=== PATIENT | female | born 1950 | race Caucasian/White ===

== ENCOUNTER 2023-10-20 17:13 | Emergency (ER) | payer MEDICARE, SELFPAY ==
[2023-10-20 17:13] VITALS: BMI 40.7
[2023-10-20 17:16] VITALS: BP 150/88
[2023-10-20 17:30] VITALS: BP 124/91
[2023-10-20 17:33] LABS: % Basophils 0.6 % (0-2); % Eosinophils 0.3 % (0-6); % Immature Granulocytes 0.3 % (0-0.5); % Lymphocytes 16.9 % (20.5-51.1); % Monocytes 6.1 % (1.7-9.3); % Neutrophils 75.8 % (42.2-75.2); Absolute Basophils 0.1 10^3/uL (0-0.2); Absolute Lymphocytes 1.3 10^3/uL (1.2-3.4); Absolute Monocytes 0.5 10^3/uL (0.1-0.6); Hematocrit 41.1 % (37.0-47.0); Hemoglobin 14.4 g/dL (12.0-16.0); Mean Corpuscular Hgb 30.7 pg (27.0-31.0); Mean Corpuscular Volume 87.6 fL (81.0-99.0); Mean Platelet Volume 9.1 fL (7.4-10.4); Nucleated Red Blood Cells % 0 %; Platelet Count 246 10^3/uL (130-400); Red Blood Cell Count 4.69 10^6/uL (4.20-5.40); Red Cell Dist. Width 12.9 % (11.5-14.5); White Blood Cell Count 7.9 10^3/uL (4.8-10.8)
[2023-10-20 17:56] LABS: COVID-19 Antigen Negative (Negative)
[2023-10-20 17:57] LABS: Urine Albumin Negative (Neg - Trace); Urine Bilirubin Negative (Negative); Urine Character Clear (Clear); Urine Color Yellow; Urine Glucose Negative (Negative); Urine Ketone Negative (Negative); Urine Leukocyte Negative (Negative); Urine Nitrite Negative (Negative); Urine Occult Blood Negative (Negative); Urine Urobilinogen Negative (Neg - 1+)
--- NOTE | 2023-10-20 18:05 | ED.GENMED ---
History of Present Illness
General
Chief Complaint: Dizziness
Source: patient and ambulance crew
Exam Limitations: none
Time Seen by Provider: 10/20/23 17:48
Nursing documentation reviewed up to this point in time: agreed with
History of Present Illness
History of Present Illness:
73-year-old female with a past medical history of hypertension, hyperlipidemia, diabetes, anxiety and depression who presents to the emergency room from home via EMS for evaluation of dizziness and fogginess. Patient reports that she has a long
history of anxiety and depression; she says that she initially was following with Dr. Wong through [facility] but will transition to treatment in [place] and has been receiving CBT there, nurse practitioner apparently recently started her
on multiple psychiatric medications. Patient had been on Klonopin since May this was prescribed by Dr. Wong; she has been continued on Klonopin but apparently her psychiatrist started her on 3 medications 2 weeks ago�Latuda, gabapentin, BuSpar.
She says since starting these medication she has been dizzy and foggy, off balance. She says that her psychiatrist is not able to see her until later this weekend she was not feeling well and decided she should come to the ER to be assessed. She
denies any chest pain, palpitations, shortness of breath. No headache. Denies any change in vision or speech, focal weakness or numbness in her extremities. She denies any fevers or chills or recent illness. She denies any other complaints.
Review of Systems
Review of Systems
All Other Systems: ROS reviewed and negative except as documented in HPI and ROS
Constitutional: Reports fatigue; Denies fever or chills
EENT: Denies sore throat
Respiratory: Denies cough or trouble breathing
Cardiac: Denies chest pain or palpitations
ABD/GI: Denies abdominal pain, nausea or vomiting
: Denies flank pain
Musculoskeletal: Denies neck pain or back pain
Neurological: Reports dizzy; Denies headache, weakness or numbness
Phy Exam
Physical Exam
Physical Exam:
General: Awake, alert, oriented x3; no acute distress
Head: Normocephalic, atraumatic
Eyes: Conjunctiva normal, EOMI, pupils equal round and reactive to light bilaterally
Throat: Airway intact, handling secretions
Neck: Trachea midline, supple without meningismus
Lungs: Clear to auscultation bilaterally, no wheezing, rales, rhonchi
Heart: Regular rate and rhythm, no murmurs, gallops, or rubs
Abd: Soft, non distended, nontender
Neuro: Cranial nerves intact 2 through 12, speech fluid without dysarthria or aphasia, no limb ataxia or dysdiadochokinesia, motor and sensory function intact and symmetric proximally distally upper and lower extremities
Skin: no rash
Extremities: No edema in extremities, equal pulses in all extremities
Scores
Heart Failure Risk
Heart Failure Risk Score: Not Applicable
Heart Score for Chest Pain Patients
STEMI patient?: Not applicable
Withdrawal Assessment of Alcohol
Withdrawal Assessment Completed?: Not applicable
Course
Orders/Labs/Results
Orders:
Orders
10/20/23 17:20
Electrocardiogram (*1) Urgent
Reason for Study: Vertigo / Dizzy
Comprehensive Metabolic Panel Urgent
10/20/23 17:21
EKG- Treatment ONCE
10/20/23 17:24
COVID-19 Antigen Urgent
Source: Nasal Swab
Complete Blood Count/With Diff Urgent
10/20/23 17:48
Urinalysis Reflex To Culture Urgent
Date Specimen was Collected: 10/20/23
Time Specimen was Collected: 17:47
10/20/23 18:03
Lorazepam [Ativan] 0.5 mg PO NOW STA
10/20/23 19:48
Crisis Consult Routine
Reason for Consult: anxiety
10/20/23 20:21
Lorazepam [Ativan] 0.5 mg IV NOW STA
Abnormal Lab Results
10/20/23 10/20/23
17:20 17:24
Neutrophils % 75.8 H %
(42.2-75.2)
Lymphocytes % 16.9 L %
(20.5-51.1)
Carbon Dioxide 21 L mmol/L
(22-30)
Glucose 162 H mg/dl
(70-99)
10/20/23 17:24
10/20/23 17:20
Vital Signs
Initial and Last Documented VS:
Initial Vital Signs
Pulse Resp Pulse Ox
82 19 96
10/20/23 17:15 10/20/23 17:15 10/20/23 17:15
Last Documented Vital Signs
Temp Pulse Resp BP Pulse Ox
36.5 C 85 21 124/91 97
10/20/23 17:36 10/20/23 20:15 10/20/23 20:15 10/20/23 17:30 10/20/23 19:00
MDM/Problems Addressed
Differential Diagnosis Includes:
Polypharmacy, anemia, electrolyte derangement, dehydration; very low clinical suspicion for stroke based on history and exam and in my judgment no head imaging indicated at this point in time
MDM/Problems Addressed:
73-year-old female presents to the ER for evaluation of dizziness/fogginess in the setting of recent initiation of multiple psychiatric medications 2 weeks ago. Hypertensive but otherwise normal vitals. Physical exam as above�notably normal
neurologic exam. Will plan to place an IV check labs including CBC and CMP. Check an EKG. Check COVID swab, urinalysis. Will check orthostatic vital signs. Provide some IV fluids. Patient very anxious, will treat with some low-dose Ativan.
Reassess after the above.
Labs reviewed: CBC unremarkable no anemia, CMP no clinically significant abnormalities. Urinalysis negative, COVID-negative, EKG shows sinus rhythm with no AV block, no Brugada, no delta wave, normal QTc. Suspect likely fogginess/dizziness is
medication related. Discussed with psychiatry, not unreasonable to stop Latuda for now and patient can follow-up outpatient however when I spoke to the patient she says she is becoming increasingly anxious, is very scared to go home feels she may
benefit from inpatient psychiatric treatment due to her severe anxiety; she is very dissatisfied with her outpatient treatment. Case discussed with crisis to evaluate patient.
Crisis performed an assessment, patient does not qualify for inpatient psychiatric treatment; I send reviewed with this, she readily admits that she is not suicidal or homicidal, not hallucinating and in my judgment is not a danger to herself or
others. She seems to be suffering with severe anxiety, provided some Ativan here with improvement. She will stop Latuda which I think is likely contributing to her dizziness and call Dr. Wong on Sunday to schedule close outpatient follow-up.
She is comfortable this plan. Spoke about return precautions all questions answered.
Chronic conditions affecting care:
Anxiety/depression
Acute Exacerbation and/or Progression of Chronic Illness:
Acutely hypertensive resolved without invention continue to monitor but no additional antihypertensives indicated present
Acute Exacerbation and/or Progression of Chronic Illness: HTN
*Pulse Oximetry
Patient hypoxic: no
*EKG
Interpreted by ED Provider?: Yes
Heart Rate: 78
Rate: normal
Rhythm: sinus
[place]: normal axis
Interval: normal interval
QRS Pattern: normal QRS
Ischemia: no ischemia
*Critical Care Note
Total Time (30-74mins, 75-104mins- exclusive of procedures): Not Applicable
Data Reviewed
Source: patient and ambulance crew
Patient Management
Discussion with other providers: [facility] Therapists (Discussed with psychiatry) and Other (Discussed with crisis staff)
ED Attending Note
-
Portions of this chart may have been created with voice recognition software.� Occasional wrong word or��sound alike� substitutions may have occurred due to the inherent limitations of voice recognition software.
Discharge Plan
Departure
Patient Disposition: Home (Routine Discharge)
Date of Disposition: 10/20/23
Time of Disposition: 20:57
Patient with high blood pressure during this ER visit?: Yes
Discharge Problem:
Dizziness
Instructions: Dizziness
Referrals:
Johnny Wong MD [Active] - Call in 1-3 days for appt
MAHSA MICHAEL MD [Family Provider] - Follow up in 5-7 days
Activity Restrictions/Additional Instructions:
Thank you for visiting the Emergency Department at [facility].
1. Please schedule a follow up appointment as directed. Call first thing tomorrow morning to make an appointment.
2. If indicated, please take your medications as instructed and indicated on discharge paperwork.
3. If any of your symptoms do not improve, or persist, or become more severe within 6-12 hours, please return to the emergency department for further care.
4. Please return to the emergency department if you develop a headache, neck pain/stiffness, fever greater than 100.4F, chest pain, shortness of breath, persistent nausea, vomiting, slurred speech, difficulty walking, numbness/tingling, weakness,
signs of infection or any other symptoms that are worrisome to you.
Please call [phone] if you have any questions.
Interventions
Interventions:
*Risk Screen - Suicide Last Done: 10/20/23 17:22
*General Assessment Last Done: 10/20/23 17:22
*Neglect/Abuse Screening Last Done: 10/20/23 17:22
*ED COVID-19 Vaccine History Last Done: 10/20/23 17:22
ED- Neurological Assessment Last Done: 10/20/23 17:29
ED- Cardiac Assessment Last Done: 10/20/23 17:29
ED Swallowing Screen Last Done: 10/20/23 17:29
Discharge Date and Time
Print Language: BURMESE
[2023-10-20] MEDS: ATIVAN 0.5 MG PO (18:10)
[2023-10-20 18:21] LABS: ALT (SGPT) 23 U/L (0-35); AST (SGOT) 27 U/L (14-36); Albumin 4.7 g/dl (3.5-5.0); Alkaline Phosphatase 96 U/L (38-126); Blood Urea Nitrogen 13 mg/dl (7-17); Calcium 10.2 mg/dl (8.4-10.2); Carbon Dioxide 21 mmol/L (22-30); Chloride 101 mmol/L (98-107); Estimated Creatinine Clearance 64 ml/min; Glucose 162 mg/dl (70-99); Potassium 4.6 mmol/L (3.5-5.1); Sodium 139 mmol/L (135-145); Total Bilirubin 0.8 mg/dl (0.2-1.3); Total Protein 6.9 g/dl (6.3-8.2); eGFR > 60.00
[2023-10-20] MEDS: ATIVAN 0.5 MG IV (20:26)
== END 2023-10-20 21:23 | disposition home or self-care (01) ==
LOC: EMR 17:13
PROVIDERS: EMERGENCY PHYSICIAN Emergency Medicine; FAMILY PHYSICIAN Internal Medicine
DX: R42 Dizziness and giddiness (principal); I10 Essential (primary) hypertension; E78.00 Pure hypercholesterolemia, unspecified; E11.9 Type 2 diabetes mellitus without complications; F41.9 Anxiety disorder, unspecified; Z11.52 Encounter for screening for COVID-19
CPT/HCPCS: 99283; 96374; 80053; 81003; 85025; 87811; 93005

== ENCOUNTER 2023-10-27 17:43 | Emergency (ER) | payer MEDICARE, SELFPAY ==
[2023-10-27 17:46] VITALS: BP 146/89
[2023-10-27 18:01] VITALS: BMI 40.0
[2023-10-27 18:08] VITALS: BP 109/83
[2023-10-27 18:18] LABS: % Basophils 0.5 % (0-2); % Eosinophils 0.4 % (0-6); % Immature Granulocytes 0.4 % (0-0.5); % Lymphocytes 15.8 % (20.5-51.1); % Monocytes 6.7 % (1.7-9.3); % Neutrophils 76.2 % (42.2-75.2); Absolute Lymphocytes 1.3 10^3/uL (1.2-3.4); Absolute Monocytes 0.5 10^3/uL (0.1-0.6); Absolute Neutrophils 6.2 10^3/uL (1.4-6.5); Hematocrit 39.9 % (37.0-47.0); Hemoglobin 14.2 g/dL (12.0-16.0); Mean Corp Hgb Conc. 35.6 g/dL (33.0-37.0); Mean Corpuscular Hgb 30.9 pg (27.0-31.0); Mean Corpuscular Volume 86.9 fL (81.0-99.0); Mean Platelet Volume 9.3 fL (7.4-10.4); Nucleated Red Blood Cells % 0 %; Platelet Count 251 10^3/uL (130-400); Red Blood Cell Count 4.59 10^6/uL (4.20-5.40); White Blood Cell Count 8.1 10^3/uL (4.8-10.8)
--- NOTE | 2023-10-27 18:24 | ED.GENMED ---
History of Present Illness
General
Chief Complaint: Dizziness
Source: patient and spouse
Time Seen by Provider: 10/27/23 18:04
History of Present Illness
History of Present Illness:
73-year-old female presents emergency department with increasing anxiety, feeling like she cannot stop shaking, insomnia, and just not really feeling her usual self. She was here last week for the same. She is on several medications for anxiety
and states that there are been recent changes in overall she thinks she is having a reaction to them. She states 'I think I need to be detox'. When I asked her for clarification about this, she states that she needs a reassessment and all her
medications either changed in dose or medication. She denies chest pain, shortness of breath, abdominal pain, fever, chills, nausea, vomiting, or other complaints. She specifically denies SI or HI. She denies any ingestions beyond her usual
medications at the usual dose.
Past History
Past History
ED Past Medical History: Psychiatric
Social History
Tobacco: Non-smoker
Alcohol: None
Drug: None
Personal:
Living: with family
Phy Exam
Physical Exam
Physical Exam:
GENERAL: Alert , in no apparent distress
EYE: pupils equal and reactive
NECK: Supple, no significant adenopathy.
ENT: o/p clr, mmm.
CARDIAC: Regular rate and rhythm .
LUNGS: Clear breath sounds bilaterally, no acute respiratory distress, no wheezes/rales/rhonchi
ABDOMEN: Soft, without focal tenderness, no r/g, no cvat
NEUROLOGICAL: Alert and oriented, no focal neuro deficits
SKIN: Warm and dry, skin intact.
MUSCULOSKELETAL: No edema, well perfused.
PSYCH: No SI or HI, extremely anxious
Course
Orders/Labs/Results
Orders:
Orders
10/27/23 18:04
Basic Metabolic Panel Urgent
Complete Blood Count/With Diff Urgent
10/27/23 18:23
Lorazepam [Ativan] 0.5 mg IV NOW STA
Abnormal Lab Results
10/27/23
18:04
Neutrophils % 76.2 H %
(42.2-75.2)
Lymphocytes % 15.8 L %
(20.5-51.1)
Glucose 178 H mg/dl
(70-99)
10/27/23 18:04
10/27/23 18:04
Vital Signs
Initial and Last Documented VS:
Initial Vital Signs
Temp Pulse Resp BP Pulse Ox
98.8 F 83 16 146/89 98
10/27/23 17:46 10/27/23 17:46 10/27/23 17:46 10/27/23 17:46 10/27/23 17:46
Last Documented Vital Signs
Temp Pulse Resp BP Pulse Ox
98.8 F 83 18 109/83 97
10/27/23 17:46 10/27/23 18:15 10/27/23 18:15 10/27/23 18:08 10/27/23 18:15
*Critical Care Note
Total Time (30-74mins, 75-104mins- exclusive of procedures): Not Applicable
Update Note
Update Note:
Patient presents to the Emergency Department with dizziness and shakiness
Number and Complexity of Problems Addressed at the Encounter
� Chronic conditions affecting care:
� Acute Exacerbation and/or Progression of Chronic Illness:
� Differential Diagnosis includes: But not limited to medication reaction, increasing anxiety, etc. etc.
Amount and/or Complexity of Data to be Reviewed and Analyzed
� I performed an independent evaluation of and my interpretation is:
EKG:
CT:
Xrays:
Laboratory Studies: Generally nonspecific, mild hyperglycemia
Other:
� Review of other/old records reveals:
� Clinical information was obtained by an independent historian: who is bedside
� Prescriptions/Medications Considered but not given:
� Further testing considered but not performed:
Risk of Complications and/or Morbidity or Mortality of Patient Management
� Social determinants of health affecting care:
� Discussion with other providers (PCP, Hospitalists, Consultants, etc): Call placed to crisis and asked them to see the patient in consult in the ER.
Patient seen by crisis in the emergency department, they agree that patient does not pose a threat to herself or others at this time and recommend that patient be seen by her psychiatrist this week. No medical abnormalities noted at this time to
warrant further evaluation. Discussed with patient and importance of follow-up and reasons to return to the ER.
Pt advised that if she develops si or hi, to rted vero. also in agreement with plan.
� Escalation of care including admission/observation vs risk of discharge considered:
ED Attending Note
-
Portions of this chart may have been created with voice recognition software.� Occasional wrong word or��sound alike� substitutions may have occurred due to the inherent limitations of voice recognition software.
Discharge Plan
Departure
Patient Disposition: Home (Routine Discharge)
Date of Disposition: 10/27/23
Time of Disposition: 19:53
Patient with high blood pressure during this ER visit?: Yes
Condition: Good
Discharge Problem:
Anxiety
Instructions: Anxiety, Adult ED, BLOOD PRESSURE
Referrals:
Chidi Willingham MD [Family Provider] -
Activity Restrictions/Additional Instructions:
PLEASE CALL YOUR PSYCHIATRIST FOR FOLLOW UP ON SUNDAY. TAKE YOUR MEDICATIONS PRESCRIBED.
Interventions
Interventions:
*Risk Screen - Suicide Last Done: 10/27/23 17:46
*General Assessment Last Done: 10/27/23 17:46
*Neglect/Abuse Screening Last Done: 10/27/23 17:46
ED- Fall Risk Assessment Last Done: 10/27/23 18:02
*ED COVID-19 Vaccine History Last Done: 10/27/23 18:02
ED- Neurological Assessment Last Done: 10/27/23 18:02
ED- Cardiac Assessment Last Done: 10/27/23 18:02
Discharge Date and Time
Print Language: KYRGYZ
[2023-10-27] MEDS: ATIVAN 0.5 MG IV (18:35)
[2023-10-27 18:38] LABS: Blood Urea Nitrogen 14 mg/dl (7-17); Calcium 9.8 mg/dl (8.4-10.2); Carbon Dioxide 23 mmol/L (22-30); Chloride 102 mmol/L (98-107); Estimated Creatinine Clearance 63 ml/min; Glucose 178 mg/dl (70-99); Sodium 140 mmol/L (135-145); eGFR > 60.00
[2023-10-27 19:00] VITALS: BP 107/63
--- NOTE | 2023-10-27 19:00 | EDRN ---
Report received, patient given a drink of water and something to eat, at bedside
--- NOTE | 2023-10-27 20:21 | EDRN ---
Patient ambulatory to the bathroom, patient states she doesn't feel well, asked what's wrong she just says shes scared and having mental health issues, crisis did see patient and give resources, informed Dr. Brooke who went in and spoke with patient
and plan is for patient to be discharged home, when discharging patient, patient brings this up again, did tell patient if she wants to speak with crisis again she can see them prior to leaving since she has been medically cleared by Dr. Brooke.
Patient wheeled out in a wheelchair by PCT.
== END 2023-10-27 20:24 | disposition home or self-care (01) ==
LOC: EMR 17:43
PROVIDERS: EMERGENCY PHYSICIAN Emergency Medicine; FAMILY PHYSICIAN Internal Medicine Gastroenterology
DX: F41.9 Anxiety disorder, unspecified (principal); R03.0 Elevated blood-pressure reading, without diagnosis of hypertension
CPT/HCPCS: 99284; 96374; 80048; 85025